=== PATIENT | female | born 1945 | race Caucasian/White ===

== ENCOUNTER 2022-10-17 13:10 | Outpatient (CLI) | payer MEDICARE, SELFPAY ==
--- NOTE | 2022-10-17 13:32 | ECG_ITS ---
Measurements Intervals [place] Rate: 77 P: 31 NE: 176 QRS: -21 QRSD: 83 T: 28 QT: 333 QTc: 378 Interpretive Statements REDUCED ECG QUALITY BECAUSE OF BASELINE ARTIFACT SINUS RHYTHM LOW QRS VOLTAGE IN PRECORDIAL LEADS [QRS DEFLECTION < 1.0 mV IN CHEST LEADS] SUSPECT PREVIOUS INFERIOR/LATERAL INFARCTION NONSPECIFIC T-WAVE ABNORMALITY ABNORMAL ECG NO PREVIOUS ECG AVAILABLE FOR COMPARISON Electronically Signed On 10-17-2022 15:42:01 CDT by Garrett Molina M.D.
[2022-10-17 13:55] LABS: Basophils Percent Auto 0.3 % (0.2-1.2); Eosinophils Absolute Auto 0.2 K/mm3 (0-0.3); Eosinophils Percent Auto 2.9 % (0-4.4); Hematocrit 46.5 % (37.0-47.0); Hemoglobin 15.4 g/dL (12.0-15.0); Immature Granulocyte Absolute 0.02 K/mm3 (0.00-0.031); Immature Granulocyte Percent A 0.3 % (0-0.5); Lymphocytes Absolute Auto 1.63 K/mm3 (0.9-3.2); Lymphocytes Percent Auto 22.5 % (18.3-44.2); Mean Corpuscular HGB Conc 33.1 g/dl (32-36); Mean Corpuscular Hemoglobin 32.5 pg (26-34); Mean Corpuscular Volume 98.1 fl (80-100); Mean Platelet Volume 11.4 fl (7.4-10.4); Monocytes Absolute Auto 0.4 K/mm3 (0.1-0.6); Monocytes Percent Auto 5.4 % (2.6-8.5); Neutrophils Percent Auto 68.6 % (45.5-73.1); Platelet Count Result 176 k/mm3 (150-375); Red Blood Count 4.74 M/mm3 (4.2-5.4); Red Cell Distribution Width 13.8 % (11.5-14.5); White Blood Count 7.2 K/mm3 (4.5-10.0)
[2022-10-17 14:02] LABS: Anion Gap 6 mmol/L (8-16); Blood Urea Nitrogen 15 mg/dL (7-17); Calcium 9.2 mg/dL (8.4-10.2); Carbon Dioxide 27 mmol/L (22-30); Chloride 107 mmol/L (98-107); Estimated Glomerular Filt Rate > 60; Glucose 143 mg/dL (65-110); Sodium 140 mmol/L (137-145)
== END 2022-10-17 13:11 | disposition home or self-care (01) ==
PROVIDERS: Anesthesiology; PCP Family Medicine; Visit Provider Obstetrics & Gynecology
DX: N85.2 Hypertrophy of uterus (principal); I10 Essential (primary) hypertension; E11.9 Type 2 diabetes mellitus without complications; Z01.818 Encounter for other preprocedural examination; R94.31 Abnormal electrocardiogram [ECG] [EKG]
CPT/HCPCS: 36415; 80048; 85025; 86850; 86900; 86901; 93005

== ENCOUNTER 2022-10-25 18:35 | Observation (INO) | payer MEDICARE, SELFPAY ==
[2022-10-16 13:03] VITALS: BMI 39.8
--- NOTE | 2022-10-16 13:42 | PC.NURSE ---
Report to the Outpatient Waiting Room, entrance under the green pavilion located off [facility], at time __7:30AM on date ___10/24/22____. Planned Procedure Time: __9:30AM . Time changes happen often and if your time is changed the preop area will call you the afternoon before. - You and your visitor will be asked to self-screen and do not enter if you have any COVID symptoms. - A mask is optional within the hospital at this time. Patients may have clear liquids (water, carbonated beverages, clear teas, apple juice) until 3 hours prior to surgery with a maximum of 20 ounces. - No food from midnight until time of surgery Take the following medications with a SIP of water the morning of surgery: ___SERTRALINE DO NOT STOP ANY OF YOUR OTHER PRESCRIPTION MEDICATIONS PRIOR TO SURGERY ?EXCEPT THE FOLLOWING Medications to discontinue per physician ___HOLD ALL VITAMINS/SUPPLEMENTS 3 DAYS PRE-OP Date to take last dose___10/20/22 Please no make-up, nail chinese, hairspray, perfume, deodorant, or body powder the day of surgery. No jewelry (including any body piercings) or valuables the day of surgery, leave them at home. Please take a shower or bath the night before, or the morning of, surgery with an antibacterial soap. Wear comfortable, loose fitting clothing. Children are encouraged to wear pajamas. - Jewelry must be removed prior to entering the operating room. Rings and piercings that are not removed may be cut off. - The hospital will not accept responsibility for valuables. - Please leave all valuables, including medications, at home the day of surgery. If you are going home after surgery, a licensed special education bus driver must drive you home. - NO public transportation without another adult if you receive anesthesia. - We recommend that an adult stay with you for 24 hours following discharge. - We also recommend that you do not drive, make important decision, drink alcoholic beverages, or take any drugs that were not prescribed by your health care provider for at least 24 hours after your discharge time. Follow any additional instructions given to you from your surgeon. If you or anyone in your household have experienced Covid symptoms in the past week, please notify your surgeon or the nurse liaison at the phone number below for possible testing. Telephone instructions given to ___PATIENT and asked if any additional questions and then verbalized understanding. Patient advised to call surgeon office or pre surgery nurse liaison [phone] if any additional questions.
--- NOTE | 2022-10-21 07:43 | PM.IMHP ---
H&P: HPI History of Present Illness Date/Time: 10/21/22 07:43 Chief Complaint: Pelvic pain and enlarged uterus Narrative: 77-year-old female admitted for hysterectomy and bilateral salpingo-oophorectomy secondary to enlarged uterus. She has pain and discomfort. Risks and benefits reviewed including but exclusive of , aspiration pneumonia, bleeding, transfusion, perforation injury to bowel, bladder, ureters, or other internal organs with need for open laparotomy. She received the ACOG handout entitled hysterectomy as well as the de [place] handout. She had all questions answered and asked to proceed [facility] Social History Social History Smoking packs per day: 0.5 Smoking cigarettes per day: 10.0 Years smoked: 12 Smoking pack-years: 6.00 Smoking status: Former smoker Tobacco type: cigarettes Smoking end date: 12/27/94 Substance use: never Living arrangements: alone Spiritual care concerns: No Meds Home Medications and Allergies Home Medications Medication Instructions Recorded Confirmed Type cholecalciferol (vitamin D3) 50 50 mcg PO DAILY 10/16/22 10/16/22 History mcg (2,000 unit) tablet lovastatin 20 mg tablet 20 mg PO HS 10/16/22 10/16/22 History magnesium 500 mg tablet 15 mg PO DAILY 10/16/22 10/16/22 History metformin 500 mg tablet,extended 500 mg PO QAM 10/16/22 10/16/22 History release 24 hr omeprazole 20 mg capsule,delayed 20 mg PO BID 10/16/22 10/16/22 History release sertraline 100 mg tablet 150 mg PO QAM 10/16/22 10/16/22 History spironolactone 50 mg tablet 50 mg PO QAM 10/16/22 10/16/22 History Allergies Allergy/AdvReac Type Severity Reaction Status Date / Time Sulfa (Sulfonamide Allergy Hives Verified 10/16/22 12:58 Antibiotics) Exam Const: General: cooperative, healthy appearing, comfortable and overweight Orientation/consciousness: oriented to person, oriented to place and oriented to time Resp: Effort & Inspection: normal respiratory effort Cardio: Rate: regular rate Rhythm: regular rhythm Heart sounds: S1 normal heart sound present and S2 normal heart sound present GI: Inspection: normal to inspection : External Female Exam: normal external appearance Speculum Exam - Vagina: normal appearance of the vagina Speculum Exam - Cervix: normal appearance of the cervix Bimanual exam- vagina & uterus: enlarged and Uterine tenderness Bimanual Exam- Adnexa, other: normal adnexae Assessment and Plan Assessment and plan (1) Enlarged uterus: Code(s): N85.2 - Hypertrophy of uterus Status: Acute (2) Pelvic pain: Code(s): R10.2 - Pelvic and perineal pain Status: Acute Plan Robotic total vaginal hysterectomy and bilateral salpingo-oophorectomy
[2022-10-24] VITALS (13 sets, daily range): BP systolic 93–130; BP diastolic 39–63; PULSE 58–90; RESP 16–22; TEMP 36.1–36.8; O2SAT 92–98; BMI 39.6
--- NOTE | 2022-10-24 05:57 | WPDHPUPDATE1 ---
History and Physical Update Update Date/Time: 10/24/22 05:57 History and Physical has been reviewed, including an updated exam of the patient. There are NO changes in the patient's condition. Risks, benefits, and alternatives have been discussed and questions answered. Patient agrees to proceed with procedure.
[2022-10-24 08:11] LABS: Glucose Point of Care 132 mg/dl (65-105)
[2022-10-24] MEDS: ACETAMINOPHEN 500 MG TABLET 1000 MG PO (08:20)
[2022-10-24] MEDS: KETOROLAC 15 MG/ML VIAL (*BKC) IV PUSH ×2 (08:20→13:40)
--- NOTE | 2022-10-24 09:03 | WPDANESEPPF ---
Anes - Initial Pre Proc Eval Procedure: Operation Date: 10/24/22 09:30 Proposed Procedures p Robotic Assisted Total Vaginal Hysterectomy with Bilateral Salpingo-oophorectomy - Kwame Rivera MD Date/Time: 10/24/22 09:03 Surgeon: Kwame Rivera MD Pre Op Diagnosis: enlarged uterus, fibroid, pain Patient Data Age: 77 Gender: F Height: 1.6 m Weight: 101.4 kg Allergies Allergy/AdvReac Type Severity Reaction Status Date / Time Sulfa (Sulfonamide Allergy Hives Verified 10/24/22 08:12 Antibiotics) Home Medications Medication Instructions Recorded Confirmed Type cholecalciferol (vitamin D3) 50 50 mcg PO DAILY 10/16/22 10/24/22 History mcg (2,000 unit) tablet lovastatin 20 mg tablet 20 mg PO HS 10/16/22 10/16/22 History magnesium 500 mg tablet 15 mg PO DAILY 10/16/22 10/24/22 History metformin 500 mg tablet,extended 500 mg PO QAM 10/16/22 10/16/22 History release 24 hr omeprazole 20 mg capsule,delayed 20 mg PO BID 10/16/22 10/16/22 History release sertraline 100 mg tablet 150 mg PO QAM 10/16/22 10/24/22 History spironolactone 50 mg tablet 50 mg PO QAM 10/16/22 10/16/22 History hydrocodone 5 mg-acetaminophen 325 1 tablet PO Q4H PRN pain #30 tabs 10/24/22 Rx mg tablet Laboratory Tests 10/24/22 08:09 POC Capillary Glucose 132 H mg/dl (65-105) Patient hx anesthesia problems: none Family hx anesthesia problems: none Results Review: All pre-operative results and documents have been reviewed as part of the pre-operative evaluation. [facility] Social History Social History Smoking packs per day: 0.5 Smoking cigarettes per day: 10.0 Years smoked: 12 Smoking pack-years: 6.00 Smoking status: Former smoker Tobacco type: cigarettes Smoking end date: 12/27/94 Substance use: never Living arrangements: alone Spiritual care concerns: No Anes - Eval Final PreProcedure Day of Procedure 10/24/22 09:03 Patient weight: obese Heart: regular rate and rhythm Lungs: decreased breath sounds Airway: Mallampati scale class III Neurological: alert and oriented Last oral intake: >/= 8 hours ASA classification: III Emergent: no Anesthetic plan: proceed Anesthesia type and monitoring: general and standard monitoring Results Review: All pre-operative results and documents have been reviewed as part of the pre-operative evaluation. Informed Consent: The patient's anesthetic plan and its attendant risks and benefits were discussed with the patient/family/POA. Questions were solicited and answers provided to the satisfaction of the patient/family/POA.
[2022-10-24] MEDS: ceFAZolin 2 GM/D5W 50 ML 2 GM/50 ML BAG IVPB (09:25)
[2022-10-24] MEDS: LACTATED RINGERS 1,000 ML 30 ML IV CONT ×2 (09:25→11:23)
--- NOTE | 2022-10-24 11:01 | W.PM.PROC2 ---
Procedure Note - Detailed Date of Procedure 10/24/22 Pre-op Diagnosis enlarged uterus, fibroid, pain Post-op Diagnosis Same Procedure Performed Buttock total vaginal hysterectomy and bilateral salpingo-oophorectomy Surgeon Kwame Rivera MD Anesthesia General Indications 77-year-old female with an markedly enlarged uterus and pelvic pain Findings uterus it was very large in size consistent with multiple fibroids. Normal-appearing ovaries and tubes bilaterally Description of Procedure patient was prepped draped in the normal sterile fashion placed in the dorsal lithotomy position. Trach anesthesia weighted speculum placed in posterior fornix vagina. Anterior lip of the cervix grasped with single-tooth tenaculum. Uterus sounded to 12cm. Serial dilatation with fragmented dilators performed followed by passes the 10. LEW and the 3. Cold cup. Next the 16 [place] Citizen catheter was placed in the bladder and. The weighted speculum and single-tooth removed. Gloves were changed. A supraumbilical incision made in the [place] needle passed in the abdomen. Abdomen filled with CO2 gas [id number]. The 8mm trocar advanced in the abdomen. Downside visualized no injury seen. Patient placed in Trendelenburg and a right left lateral quadrant incisions made. The 8mm trocars advanced under direct visualization assuring no injury. Right upper quadrant incision made 8mm trocar advanced under direct visualization assuring no injury. The robot was docked. Attention was turned to the console. The uterus was noted to be markedly irregular large and filling the entire pelvis. The left round ligament was grasped, burned, cut. Anterior bladder flap was formed by sharply dissecting the peritoneum and reflecting this caudally away from the cervix uterus the opposite round ligament which was clamped, burned, cut. Next the left infundibulopelvic structure was skeletonized clamping burning cutting the infundibulopelvic structure and bringing this to the level of previously cut round ligament. Removing the right ovary and tube the infundibulopelvic structure was clamped, burned, cut. This was brought to the level of previous cut round ligament. The left cardinal broad ligaments were then serially skeletonized clamping burning cutting and bringing this to the level of the uterine vessels. These were large and tortuous. Each was individually clamped, burned, cut. The opposite side on the right was clamped, burned, cut writing the i cardinal broad ligaments until the uterine vessels could be seen on the right these were individually clamped, burned, cut the uterus was blanched nicely in a colpotomy incision was made. The uterus could not be taken out in 1 piece as noted so it was no cone by sharply dissecting areas and stacking this and till all was be able to be brought out through vaginal opening in 1 piece. The vagina was then closed with continuous running 0V lock from lateral edge to lateral edge back to the midline. Irrigation undertaken and pelvis and [place] term was placed on the raw surface areas. The robot was undocked. The gas removed from the abdomen the trocars removed incisions closed with 4-0 Monocryl and glue patient was awakened went to recovery in satisfactory condition. All sponge, needle, instrument counts were correct. Blood loss was estimated at50cc there were no immediate complications noted Estimated Blood Loss 50 Drains No Packing No Pathology Yes Complications No immediate complications Condition Stable Disposition PACU
[2022-10-24 11:32] LABS: Glucose Point of Care 137 mg/dl (65-105)
[2022-10-24] MEDS: DEXTROSE 5%/0.45% SOD CHL 1,000 ML 125 ML IV CONT (13:29)
[2022-10-24] MEDS: HYDROcodone/acetaminophen (*CRX) 10-325 MG TABLET 1 TAB PO (14:26)
[2022-10-24] MEDS: SODIUM CHLORIDE 0.9% IV 500 ML IV CONT (14:40)
[2022-10-24] MEDS: HYDROcodone/acetaminophen (*CRX) 5-325 MG TABLET 1 TAB PO ×2 (17:26→23:10)
[2022-10-24] MEDS: IBUPROFEN 600 MG TABLET PO (23:10)
[2022-10-25] VITALS (7 sets, daily range): BP systolic 82–112; BP diastolic 45–92; PULSE 85–89; RESP 14–20; TEMP 35.7–36.7; O2SAT 86–91
[2022-10-25] MEDS: HYDROcodone/acetaminophen (*CRX) 5-325 MG TABLET 1 TAB PO (03:30)
[2022-10-25 05:14] LABS: Basophils Percent Auto 0.1 % (0.2-1.2); Eosinophils Percent Auto 0.1 % (0-4.4); Hematocrit 42.7 % (37.0-47.0); Hemoglobin 13.8 g/dL (12.0-15.0); Immature Granulocyte Absolute 0.07 K/mm3 (0.00-0.031); Immature Granulocyte Percent A 0.4 % (0-0.5); Lymphocytes Absolute Auto 1.59 K/mm3 (0.9-3.2); Lymphocytes Percent Auto 9.6 % (18.3-44.2); Mean Corpuscular HGB Conc 32.3 g/dl (32-36); Mean Corpuscular Hemoglobin 32.4 pg (26-34); Mean Corpuscular Volume 100.2 fl (80-100); Mean Platelet Volume 12.1 fl (7.4-10.4); Monocytes Absolute Auto 0.9 K/mm3 (0.1-0.6); Monocytes Percent Auto 5.3 % (2.6-8.5); Neutrophils Absolute Auto 13.9 K/mm3 (1.3-6.7); Neutrophils Percent Auto 84.5 % (45.5-73.1); Platelet Count Result 191 k/mm3 (150-375); Red Blood Count 4.26 M/mm3 (4.2-5.4); Red Cell Distribution Width 14.3 % (11.5-14.5); White Blood Count 16.5 K/mm3 (4.5-10.0)
--- NOTE | 2022-10-25 06:33 | PM.DS ---
DS: Admitting Diagnosis Discharge Date 10/25/2022 Admitting Diagnosis enlarged uterus/ fibroid/pain DS: Discharge Diagnosis Discharge Diagnosis (1) Pelvic pain: Code(s): R10.2 - Pelvic and perineal pain Status: Acute (2) Enlarged uterus: Code(s): N85.2 - Hypertrophy of uterus Status: Acute DS: Summary Hospital Course Reason for hospitalization: patient was admitted for robotic total vaginal hysterectomy bilateral salpingo-oophorectomy secondary to markedly enlarged uterus Hospital Course: patient underwent robotic total vaginal hysterectomy bilateral salpingo-oophorectomy on 10/24/2022. Uterus was noted to be large consistent with fibroids. The procedure was unremarkable. Please see the operative report for full details. Her hospital course was unremarkable. She remained afebrile. She was up, voiding without difficulty, ambulating, eating regular diet, generally without complaints. Time Spent with Patient Time attestation: Total time spent providing and/or coordinating discharge services: Exam Const: General: cooperative, healthy appearing, comfortable and well groomed Nutritional Appearance: overweight Orientation/consciousness: oriented to person, oriented to place and oriented to time HENMT: Head: normal to inspection Resp: Effort & Inspection: normal respiratory effort Cardio: Rate: regular rate Rhythm: regular rhythm Heart sounds: S1 normal heart sound present and S2 normal heart sound present GI: Inspection: normal to inspection and incision ( Wounds are clean dry and intact) DS: Data Data Completed and Pending Pending studies at discharge: Pending at discharge 10/24/22 10:40 Surgical [PTH] Routine Labs on day of discharge: Labs from last 24 hours 10/25/22 10/24/22 10/24/22 03:29 11:30 08:09 WBC 16.5 H RBC 4.26 Hgb 13.8 Hct 42.7 MCV 100.2 H MCH 32.4 MCHC 32.3 RDW 14.3 Plt Count 191 MPV 12.1 H Immature Gran % (Auto) 0.4 Neut % (Auto) 84.5 H Lymph % (Auto) 9.6 L [place] % (Auto) 5.3 Eos % (Auto) 0.1 Baso % (Auto) 0.1 L Lymph # (Auto) 1.59 [place] # (Auto) 0.9 H Eos # (Auto) 0.0 Baso # (Auto) 0.0 Abs Immat Gran (auto) 0.07 H Absolute Neuts (auto) 13.9 H Absolute Nucleated RBC 0.0 Nucleated RBC % 0.0 POC Capillary Glucose 137 H 132 H Discharge Plan Discharge Patient Disposition: Home, Self-Care Stand Alone Forms: General Discharge Instructions Follow-up/Referrals: Kwame Zuniga MD [Physician] - Discharge Medications: New hydrocodone-acetaminophen 5-325 mg tablet 1 tablet PO Q4H PRN (Reason: pain) Qty: 30 0RF No Action sertraline 100 mg tablet 150 mg PO QAM omeprazole 20 mg Capsule,Delayed Release(Dr/Ec) 20 mg PO BID lovastatin 20 mg tablet 20 mg PO HS metformin 500 mg tablet extended release 24 hr 500 mg PO QAM spironolactone 50 mg tablet 50 mg PO QAM magnesium 500 mg Tablet 15 mg PO DAILY cholecalciferol (vitamin D3) 50 mcg (2,000 unit) Tablet 50 mcg PO DAILY
--- NOTE | 2022-10-25 06:39 | PM.GYNPNOP ---
MICROBIOLOGY TEACHER - A/P Postoperative Procedures: Procedures Operation Date: 10/24/22 09:30 Actual Procedure Side Surgeon p Robotic Assisted Total Vaginal Hysterectomy with Bilateral Salpingo-oophorectomy Bilateral Kwame Rivera MD Postoperative day: 1 Postoperative status: doing well Postoperative plan: routine post-op care, see orders, ambulate, advance diet and discharge Time Spent With Patient Time: Total time spent is greater than 50% in coordination of care (as documented) at patient's floor/unit and/or counseling patient: Time with patient: less than 15 minutes MICROBIOLOGY TEACHER- PN:Subj Post-Op Subjective Date/time seen: 10/25/22 06:39 Subjective: patient reports feeling better, patient has no complaints, pain is well controlled and patient is tolerating oral intake Exam Const: General: cooperative, healthy appearing, comfortable and overweight Orientation/consciousness: oriented to person, oriented to place and oriented to time HENMT: Head: normal to inspection Resp: Effort & Inspection: normal respiratory effort Cardio: Rate: regular rate Rhythm: regular rhythm Heart sounds: S1 normal heart sound present and S2 normal heart sound present GI: Inspection: normal to inspection and incision ( wounds are clean dry and intact) MICROBIOLOGY TEACHER - PN: Obj Data Vital Signs Vital Signs: Vital Signs - 24 hr 10/24/22 07:40 10/24/22 11:23 10/24/22 11:35 Temperature 97.0 F L 97.5 F L Pulse Rate 90 70 65 Respiratory Rate 16 22 H 22 H Blood Pressure 114/61 93/46 L 97/39 L Pulse Oximetry 96 98 97 Oxygen Delivery Room Air Simple Face Mask Simple Face Mask Oxygen Flow Rate 15 6 10/24/22 11:50 10/24/22 12:05 10/24/22 12:20 Temperature Pulse Rate 62 62 65 Respiratory Rate 22 H 20 20 Blood Pressure 104/44 L 106/50 L 106/56 L Pulse Oximetry 96 92 94 Oxygen Delivery Nasal Cannula Nasal Cannula Nasal Cannula Oxygen Flow Rate 3 3 3 10/24/22 12:49 10/24/22 12:35 10/24/22 13:00 Temperature Pulse Rate 64 65 64 Respiratory Rate 20 20 20 Blood Pressure 112/58 L 107/58 L Pulse Oximetry 95 96 95 Oxygen Delivery Nasal Cannula Nasal Cannula Nasal Cannula Oxygen Flow Rate 3 3 3 10/24/22 13:15 10/24/22 17:40 10/24/22 17:40 Temperature 97.0 F L 97.7 F Pulse Rate 58 L 73 73 Respiratory Rate 20 18 18 Blood Pressure 98/45 L 125/63 Pulse Oximetry 95 96 96 Oxygen Delivery Nasal Cannula Oxygen Flow Rate 3 10/24/22 20:50 10/24/22 20:50 10/24/22 23:15 Temperature 97.7 F 98.2 F Pulse Rate 85 78 Respiratory Rate 18 16 Blood Pressure 130/49 L 121/55 L Pulse Oximetry 92 92 95 Oxygen Delivery Nasal Cannula Oxygen Flow Rate 3 10/24/22 23:15 10/25/22 03:15 10/25/22 03:15 Temperature 97.4 F L Pulse Rate 85 Respiratory Rate 20 Blood Pressure 112/49 L Pulse Oximetry 95 Oxygen Delivery Nasal Cannula Room Air Oxygen Flow Rate 2.5 Intake/Output Intake/Output: Intake & Output 10/22/22 10/23/22 10/24/22 10/25/22 23:59 23:59 23:59 23:59 Intake Total 2890 Output Total 1045 100 Balance 1845 -100 Meds/Results Medications: Active Medications Generic Name Dose Route Start Last Admin Trade Name Freq PRN Reason Stop Dose Admin Hydrocodone Bitart/Acetaminophen 1 tab 10/24/22 12:54 10/24/22 14:26 Hydrocodone/Acetaminophen (*Crx) 10-325 Mg Tablet PO 1 tab Q3H PRN Administration Pain Rated 6 or Greater Hydrocodone Bitart/Acetaminophen 1 tab 10/24/22 12:54 10/25/22 03:30 Hydrocodone/Acetaminophen (*Crx) 5-325 Mg Tablet PO 1 tab Q3H PRN Administration Pain Rated 5 or Less Docusate Sodium 100 mg 10/24/22 17:00 10/24/22 22:59 Docusate Sodium 100 Mg Capsule PO Not Given BID LILO Enoxaparin Sodium 40 mg 10/25/22 09:00 Enoxaparin 40 Mg/0.4 Ml Syringe SUB-Q DAILY [facility] Dextrose/Sodium Chloride 1,000 mls @ 125 mls/hr 10/24/22 12:54 10/24/22 23:34 Dextrose 5% Sodium Chloride 0.45% IV CONT Not Given .Q8H LILO Ibuprofen 600 mg 09/28
[2022-10-25] MEDS: DOCUSATE SODIUM 100 MG CAPSULE PO ×2 (09:52→16:38)
[2022-10-25] MEDS: ENOXAPARIN 40 MG/0.4 ML SYRINGE SUB-Q (09:52)
--- NOTE | 2022-10-25 11:12 | WPDANESPN ---
Anes - Prog Note Post-Op Date/Time: 10/25/22 11:12 Cardiovascular status: normal Respiratory status: normal Airway patency: baseline Mental status: baseline Post-Op hydration status: normal Vital Signs: Last Vital Signs Temp 36.7 C 10/25/22 07:11 Pulse 89 10/25/22 07:11 Resp 14 10/25/22 07:11 BP 82/45 L 10/25/22 07:11 Pulse Ox 91 10/25/22 07:11 O2 Del Method Room Air 10/25/22 03:15 O2 Flow Rate 2.5 10/24/22 23:15 Pain Score (VAS): 3 I/O: Intake & Output 10/24/22 10/25/22 10/25/22 23:59 07:59 15:59 Intake Total 2240 Output Total 1000 100 Balance 1240 -100 Laboratory Tests 10/25/22 03:29 10/24/22 10/25/22 11:30 03:29 WBC 16.5 H RBC 4.26 Hgb 13.8 Hct 42.7 MCV 100.2 H MCH 32.4 MCHC 32.3 RDW 14.3 Plt Count 191 MPV 12.1 H Immature Gran % (Auto) 0.4 Neut % (Auto) 84.5 H Lymph % (Auto) 9.6 L [place] % (Auto) 5.3 Eos % (Auto) 0.1 Baso % (Auto) 0.1 L Lymph # (Auto) 1.59 [place] # (Auto) 0.9 H Eos # (Auto) 0.0 Baso # (Auto) 0.0 Abs Immat Gran (auto) 0.07 H Absolute Neuts (auto) 13.9 H Absolute Nucleated RBC 0.0 Nucleated RBC % 0.0 POC Capillary Glucose 137 H Post-procedural complaints: none Patient Feedback: Patient satisfied with anesthetic care.
[2022-10-25] MEDS: SODIUM CHLORIDE 0.9% IV 500 ML 300 ML IV CONT (15:28)
[2022-10-25] MEDS: IBUPROFEN 600 MG TABLET PO (16:38)
[2022-10-25] MEDS: FUROSEMIDE INJ 40 MG/4 ML VIAL 10 MG IV PUSH (17:56)
--- NOTE | 2022-10-26 07:20 | PM.GYNPNOP ---
LOCOMOTIVE ELECTRICIAN - A/P Postoperative Procedures: Procedures Operation Date: 10/24/22 09:30 Actual Procedure Side Surgeon p Robotic Assisted Total Vaginal Hysterectomy with Bilateral Salpingo-oophorectomy Bilateral Kwame Rivera MD Postoperative day: 2 Postoperative status: doing well Postoperative plan: routine post-op care, see orders and discharge Time Spent With Patient Time: Total time spent is greater than 50% in coordination of care (as documented) at patient's floor/unit and/or counseling patient: home with leg bag she is not taking much fluids orally Time with patient: less than 15 minutes LOCOMOTIVE ELECTRICIAN- PN:Subj Post-Op Subjective Date/time seen: 10/26/22 07:20 Subjective: patient has no complaints, pain is well controlled, patient is tolerating oral intake and other (Not drinking enough) Exam Const: General: cooperative, healthy appearing, comfortable and overweight Orientation/consciousness: oriented to person, oriented to place and oriented to time HENMT: Head: normal to inspection Resp: Effort & Inspection: normal respiratory effort Cardio: Rate: regular rate Rhythm: regular rhythm Heart sounds: S1 normal heart sound present and S2 normal heart sound present GI: Inspection: normal to inspection and incision ( wounds are clean dry and intact) LOCOMOTIVE ELECTRICIAN - PN: Obj Data Vital Signs Vital Signs: Vital Signs - 24 hr 10/25/22 09:50 10/25/22 13:15 10/25/22 13:00 Temperature Pulse Rate Respiratory Rate Blood Pressure 112/92 H 100/65 Oxygen Delivery Room Air 10/25/22 19:30 10/25/22 19:30 10/25/22 22:00 Temperature 96.2 F L Pulse Rate 87 Respiratory Rate 18 Blood Pressure 107/55 L Oxygen Delivery Room Air Room Air 10/26/22 05:00 Temperature Pulse Rate Respiratory Rate Blood Pressure Oxygen Delivery Room Air Intake/Output Intake/Output: Intake & Output 10/23/22 10/24/22 10/25/22 10/26/22 23:59 23:59 23:59 23:59 Intake Total 2890 1140 600 Output Total 1045 500 275 Balance 1845 640 325 Meds/Results Medications: Active Medications Generic Name Dose Route Start Last Admin Trade Name Freq PRN Reason Stop Dose Admin Hydrocodone Bitart/Acetaminophen 1 tab 10/24/22 12:54 10/24/22 14:26 Hydrocodone/Acetaminophen (*Crx) 10-325 Mg Tablet PO 1 tab Q3H PRN Administration Pain Rated 6 or Greater Hydrocodone Bitart/Acetaminophen 1 tab 10/24/22 12:54 10/25/22 03:30 Hydrocodone/Acetaminophen (*Crx) 5-325 Mg Tablet PO 1 tab Q3H PRN Administration Pain Rated 5 or Less Docusate Sodium 100 mg 10/24/22 17:00 10/25/22 16:38 Docusate Sodium 100 Mg Capsule PO 100 mg BID LILO Administration Enoxaparin Sodium 40 mg 10/25/22 09:00 10/25/22 09:52 Enoxaparin 40 Mg/0.4 Ml Syringe SUB-Q 40 mg DAILY LILO Administration Ibuprofen 600 mg 10/24/22 12:54 10/25/22 16:38 Ibuprofen 600 Mg Tablet PO 600 mg Q6H PRN Administration Cramping Ketorolac Tromethamine 15 mg 10/24/22 13:34 10/24/22 13:40 Ketorolac 15 Mg/Ml Vial (*Bkc) IV PUSH 15 mg Q6H PRN Administration Pain Rated 4-6 Naloxone HCl 0.1 mg 10/24/22 12:54 Naloxone Hcl 0.4 Mg/Ml Vial IV PUSH Q2M PRN Respiratory rate less than 10 Ondansetron HCl 4 mg 10/24/22 12:54 Ondansetron Inj 4 Mg/2 Ml Vial IV PUSH Q6H PRN Nausea And Vomiting Simethicone 80 mg 10/24/22 12:54 Simethicone 80 Mg Tab.Chew PO Q2H PRN Gas Labs 10/25/22 03:29
[2022-10-26 08:00] VITALS: BP 115/60; PULSE 79; RESP 16; TEMP 36.4; O2SAT 91
[2022-10-26] MEDS: DOCUSATE SODIUM 100 MG CAPSULE PO (08:00)
[2022-10-26] MEDS: ENOXAPARIN 40 MG/0.4 ML SYRINGE SUB-Q (08:00)
== END 2022-10-26 11:21 | disposition home or self-care (01) ==
LOC: ANHSURGERY 18:57 → ANHOB2 18:57
PROVIDERS: Admitting Provider Obstetrics & Gynecology; PCP Family Medicine; Visit Provider Obstetrics & Gynecology
PROC: (CPT 58554; principal; 2022-10-24 09:30)
DX: N85.2 Hypertrophy of uterus (principal); R10.2 Pelvic and perineal pain; E66.9 Obesity, unspecified; Z68.39 Body mass index [BMI] 39.0-39.9, adult; Z87.891 Personal history of nicotine dependence; Z79.84 Long term (current) use of oral hypoglycemic drugs; Z79.891 Long term (current) use of opiate analgesic; Z79.899 Other long term (current) drug therapy
CPT/HCPCS: 58554; S2900; 36415; 82948; 85025; 88307; 99199; A9270; G0378; J0330; J0690; J1100; J1650; J1885; J1940; J2405; J2704; J2710; J3010; J7030; J7040; J7120

== ENCOUNTER 2022-10-29 15:59 | Emergency (ER) | payer MEDICARE, SELFPAY ==
--- NOTE | ~2022-10-29 | CT_ITS ---
EXAMINATION: CTA chest PE protocol DATE: 10/29/2022 18:26 INDICATION: SOB SINCE THURSDAY; S/P HYSTERECTOMY; ELEVATED D DIMER 3.57 TECHNIQUE: Computed tomography angiography (CTA) of the chest was performed with 100 mL Omnipaque-350 intravenous contrast timed to evaluate the pulmonary arteries. Coronal maximum intensity projection 3D-reconstructions were created by the technologist. The dose-length product (DLP) was 808.42 mGy-cm. Automated exposure control and iterative reconstruction technique were employed. COMPARISON: None. FINDINGS: Lung parenchyma and airways: Central reticular and groundglass opacity in the upper lobes, with evide nce of early fibrosis. Dependent atelectasis. Pleura: Moderate right and small left pleural fluid collections. Thoracic inlet, axillae and chest wall: Intrathoracic goiter. Thoracic aorta: Normal. Mediastinum: Normal. Heart and pericardium: Mild cardiomegaly. Coronary artery calcifications: Mild. Upper abdomen: No significant finding. Bones: No acute osseous finding. Pulmonary arteries: Study quality: Adequate. No pulmonary emboli detected. IMPRESSION: No CT evidence of acute pulmonary embolus. Pulmonary opacities may represent hypersensitivity pneumon itis, airways disease, or atypical infection. Reviewed, dictated and finalized at location K. IMPRESSION: No CT evidence of acute pulmonary embolus. Pulmonary opacities may represent hy persensitivity pneumonitis, airways disease, or atypical infection.
--- NOTE | ~2022-10-29 | XR_ITS ---
EXAMINATION: XR chest 1V portable Exam Date/Time: 10/29/2022 17:00 CDT HISTORY: SOB SINCE THURSDAY; S/P HYSTERECTOMY. Comparison: None available. RESULT: Lines, tubes, and devices: Partially visualized right shoulder arthroplasty. Lungs and pleura: Diffuse reticular opacities. Bibasilar atelectasis. Cardiomediastinal silhouette: Possible enlarged right hilar lymph node. Other: No acute osseous or upper abdominal finding. IMPRESSION: Interstitial edema. Possible right hilar lymphadenopathy. Reviewed, dictated and finalized at location K.
--- NOTE | 2022-10-29 16:05 | ED.SOB ---
HPI - SOB/Dyspnea General Chief Complaint: Shortness of Breath/Dyspnea Stated Complaint: SOB Time Seen by Provider: 10/29/22 16:05 Source: patient Mode of arrival: ambulatory Limitations: no limitations History of Present Illness HPI Narrative: 77-year-old female with a history of hypertension, diabetes mellitus, negative stress test, status post right shoulder and right knee replacement, ELSIE,fibroid uterus/uterine enlargement status post robotic vaginal hysterectomy with salpingo-oophorectomy on 10/24/2022 presents to the ER with -- urinary incontinence. The patient is not able to hold her urine. She does not have control over urination -- shortness of breath at rest and with activity. Shortness of breath is present at rest and with activity. No cough or sputum production. the patient had been on Lovenox prophylactic -- no vaginal bleeding or discharge. -- No fever or chills. MD elicited complaint: shortness of breath Pertinent past history: other ( ELSIE) Onset (ago): day(s) ( symptoms started 5 days ago) Timing: constant Severity: mild Exacerbating factors: nothing Relieving factors: nothing Known history of: other ( ELSIE) Associated symptoms: cough Treatment prior to arrival: none Related Data Home Medications Medication Instructions Recorded Confirmed cholecalciferol (vitamin D3) 50 50 mcg PO DAILY 10/16/22 10/29/22 mcg (2,000 unit) tablet lovastatin 20 mg tablet 20 mg PO HS 10/16/22 10/29/22 magnesium 500 mg tablet 15 mg PO DAILY 10/16/22 10/29/22 metformin 500 mg tablet,extended 500 mg PO QAM 10/16/22 10/29/22 release 24 hr omeprazole 20 mg capsule,delayed 20 mg PO BID 10/16/22 10/29/22 release sertraline 100 mg tablet 150 mg PO QAM 10/16/22 10/29/22 spironolactone 50 mg tablet 50 mg PO QAM 10/16/22 10/29/22 Allergies Allergy/AdvReac Type Severity Reaction Status Date / Time Sulfa (Sulfonamide Allergy Hives Verified 10/24/22 08:12 Antibiotics) Review of Systems Review of Systems: All systems reviewed & are unremarkable except as noted in HPI and below Constitutional: Constitutional: Reports as per HPI and Reports no additional constitutional complaints Eyes: Eyes: Reports as per HPI and Reports no additional eye complaints ENT: Reports system reviewed and no additional complaints, except as documented and Reports as per HPI Cardiovascular: Cardiovascular: Reports as per HPI and Reports no additional cardiovascular complaints Respiratory: Respiratory: Reports as per HPI, Reports no additional respiratory complaints, Reports cough and Reports dyspnea Gastrointestinal: Gastrointestinal: Reports as per HPI and Reports no additional gastrointestinal complaints Genitourinary: Genitourinary: Reports no additional female genitourinary complaints and Reports urinary incontinence Musculoskeletal: Musculoskeletal: Reports no additional musculoskeletal complaints and Reports as per HPI Integumentary/Breasts: Skin/Breast: Reports system reviewed and no additional complaints, except as docu and Reports as per HPI Neurologic: Reports system reviewed and no additional complaints, except as documented and Reports as per HPI Psychiatric: Psychiatric: Reports no additional psychiatric complaints and Reports as per HPI Endocrine: Endocrine: Reports no additional endocrine complaints and Reports as per HPI Hematologic/Lymphatic: Hematologic/Lymphatic: Reports no additional hematologic/lymphatic complaints and Reports as per HPI Allergic/Immunologic: Allergic/Immunologic: Reports no additional allergic/immunologic complaints and Reports as per HPI [facility] Social History Social History Smoking packs per day: 0.5 Smoking cigarettes per day: 10.0 Years smoked: 12 Smoking pack-years: 6.00 Smoking status: Former smoker Substance use: never Living arrangements: alone Spiritual care concerns: No Exam Const: General: healthy mino
[2022-10-29 16:11] VITALS: BP 146/71; PULSE 80; RESP 20; TEMP 36.9; O2SAT 97
--- NOTE | 2022-10-29 16:31 | ECG_ITS ---
Measurements Intervals Albert Rate: 75 P: 58 RI: 172 QRS: -59 QRSD: 87 T: 33 QT: 379 QTc: 424 Interpretive Statements SINUS RHYTHM LOW QRS VOLTAGE IN PRECORDIAL LEADS POOR R WAVE PROGRESSION, CONSIDER ANTERIOR INFARCT CONSIDER INFERIOR INFARCT, AGE INDETERMINATE BORDERLINE T WAVE ABNORMALITY- ANTERIOR LEADS BASELINE ARTIFACT- II, III, AVL, AVF, V1, V6 ABNORMAL ECG COMPARED TO ECG 10/17/2022 13:44:57 NO SIGNIFICANT CHANGES Electronically Signed On 10-29-2022 19:59:03 CDT by Kali Hill D.O.
[2022-10-29 17:06] LABS: Basophils Absolute Auto 0.05 K/mm3 (0.00-0.10); Basophils Percent Auto 0.4 % (0.0-1.0); Eosinophils Absolute Auto 0.28 K/mm3 (0.02-0.50); Eosinophils Percent Auto 2.3 % (1.0-6.0); Hematocrit 41.3 % (35.0-42.0); Hemoglobin 13.7 g/dL (11.7-13.8); Immature Granulocyte Absolute 0.05 K/mm3 (0.00-0.00); Immature Granulocyte Percent A 0.4 % (0.0-0.0); Lymphocytes Absolute Auto 1.25 K/mm3 (1.10-4.50); Lymphocytes Percent Auto 10.4 % (18.0-42.0); Mean Corpuscular HGB Conc 33.2 g/dL (32.0-36.0); Mean Corpuscular Hemoglobin 32.5 pg (27.0-31.0); Mean Corpuscular Volume 97.9 fL (78.0-102.0); Mean Platelet Volume 11.8 fl (9.2-11.8); Monocytes Absolute Auto 0.84 K/mm3 (0.10-0.90); Neutrophils Absolute Auto 9.6 K/mm3 (1.7-7.2); Neutrophils Percent Auto 79.5 % (50.0-70.0); Platelet Count Result 185 K/mm3 (150-420); Red Blood Count 4.22 M/mm3 (4.20-5.40); Red Cell Distribution Width 14.1 % (11.6-14.4); White Blood Count 12.1 K/mm3 (4.8-10.8)
[2022-10-29 17:21] LABS: INR 1.1; Partial Thromboplastin Time 24.5 SEC (23.90-30.70)
[2022-10-29 17:26] LABS: D Dimer 3.57 mg/L (0.19-0.50)
[2022-10-29 17:31] LABS: Lactic Acid Reflex 1.1 mmol/L (0.4-2.0)
[2022-10-29 17:32] LABS: Alanine Aminotransferase 83 U/L (14-59); Albumin Level 2.4 g/dL (3.4-5.0); Alkaline Phosphatase 123 U/L (46-116); Anion Gap 7 mmol/L (8-16); Aspartate Amino Transferase 34 U/L (15-37); Bilirubin,Total 1.1 mg/dL (0.00-1.00); Blood Urea Nitrogen 11 mg/dL (7-18); Calcium 8.9 mg/dL (8.5-10.1); Carbon Dioxide 31 mmol/L (21-32); Chloride 104 mmol/L (98-108); Estimated CRCL calculation 55 ml/min; Estimated Glomerular Filt Rate > 60; Glucose 83 mg/dL (70-99); Lipase 22 U/L (16-77); NT Pro B Type Natriuretic Pept 4675 pg/mL (0-450); Osmolality Calculated 292 mOsm/kg (285-295); Potassium 3.6 mmol/L (3.5-5.1); Sodium 142 mmol/L (136-145); Total Protein 7.1 g/dL (6.4-8.2)
[2022-10-29 17:35] LABS: Troponin I 73.7 ng/L (0.00-60.4)
[2022-10-29] MEDS: LACTATED RINGERS 500 ML 999 ML IV CONT (17:55)
[2022-10-29 17:57] LABS: Appearance Urine Clear (Clear); Bilirubin Urine Negative (Negative); Blood Urine 2+ (Negative); Color Urine Light Yellow (Yellow); Glucose Urine UA Negative (Negative); Ketones Urine Negative (Negative); Leukocyte Esterase Ur 3+ LEU/UL (Negative); Nitrate Urine Positive (Negative); Protein Urine Trace (Negative); Specific Grav Ur 1.015 (1.010-1.020); pH Urine 7.5 (5.0-8.0)
[2022-10-29 18:04] LABS: Add Urine Microscopic? YES; Bacteria Urine 3+ /hpf; Squamous Epithelial Cell Urine Rare /hpf (Few)
--- NOTE | 2022-10-29 18:53 | PC.NURSE ---
pt resting per cot. no distress noted. no needs at this time.
[2022-10-29 18:55] VITALS: BP 148/72; PULSE 78; RESP 20; O2SAT 94
[2022-10-29 18:57] VITALS: BP 130/61; PULSE 70; RESP 18; O2SAT 94
[2022-10-29 20:21] LABS: Troponin I 71.8 ng/L (0.00-60.4)
[2022-10-29 20:43] VITALS: BP 134/52; PULSE 72; RESP 20; TEMP 36.7; O2SAT 100
[2022-10-29] MEDS: FUROSEMIDE INJ 20 MG/2 ML VIAL IV PUSH (22:12)
[2022-10-29 22:40] LABS: Influenza A QL RT-PCR Negative (Negative); Influenza B QL RT-PCR Negative (Negative); RSV RNA, RT-PCR Negative (Negative); SARS-CoV-2 RNA PCR Negative (Negative)
[2022-10-29 23:14] VITALS: BP 121/81; PULSE 88; RESP 20; TEMP 36.7; O2SAT 100
--- NOTE | 2022-10-31 12:54 | PC.NURSE ---
Final Culture report: Patient transfered to [facility] RN spoke with floor patient is still in room CCU bed 4. Report faxed to [phone]
--- NOTE | 2022-11-01 15:21 | PC.NURSE ---
final urine culture report reviewed. >100,000 e.coli. this pt was transferred to [facility] in [place]. this report faxed to [facility] through connect staff. they are sending it on to the appropriate charge nurse.
== END 2022-10-29 23:15 | disposition short-term general hospital (02) ==
PROVIDERS: Emergency Provider Internal Medicine Critical Care Medicine; PCP Family Medicine
DX: I21.4 Non-ST elevation (NSTEMI) myocardial infarction (principal); I11.0 Hypertensive heart disease with heart failure; I50.9 Heart failure, unspecified; E11.9 Type 2 diabetes mellitus without complications; Z79.84 Long term (current) use of oral hypoglycemic drugs; Z87.891 Personal history of nicotine dependence; Z20.822 Contact with and (suspected) exposure to COVID-19
CPT/HCPCS: 36415; 71045; 71275; 80053; 81001; 83605; 83690; 83880; 84484; 85025; 85380; 85610; 85730; 87077; 87086; 87088; 87186; 87637; 93005; 96361; 96374; 99285; J1940; J7120; Q9967

== ENCOUNTER 2023-02-02 12:17 | Outpatient (RCR) | payer MEDICARE, SELFPAY ==
--- NOTE | 2023-02-02 16:43 | STOPEVDC ---
Assessment and note entered by Corin Mchugh, LEAD CONSULTANT Thank you for referring Mena Olsen to [facility].? An evaluation has been completed. No further treatment is needed. Evaluation Information Assessment Status Evaluation Reported Pain Level Pain Score 0: Self Report Assessment ST Clinical Summary VOICE EVALUATION This patient was seen for a Voice Evaluation after suffering dysphonia/ deflated vocal cord , according to patient, after undergoing anesthesia/ intubation for hysterectomy on 10/24/22. Patient stated prior to this procedure, she considered her voice to be normal but now would describe it as somewhat harsh and lower in pitch than previously. She reports she has better times of day and worse when she has been speaking for lengthy periods of time; of note, patient spoke throughout this evaluation and attempted to use conversational topics to keep conversation going throughout the session. Results today found pitch and loudness ranges to be grossly within normal limits for age and sex although vocal quality was notably disturbed. Patient was instructed in the use of a vocal hygiene regimen to reduce the stress/tension on the vocal cords. Patient declined any attempt at additional Speech Therapy at this time, stating she plans on waiting to see if an injection of material into the impaired vocal cord can return it to normal functioning prior to initiating any direct Speech Therapy at this time. Additionally, patient has plans to be out of town for an extended visit prior to the procedure. Therapist requested patient contact this department after her procedure to assess improvement in voicing and to determine if she would then benefit from direct Speech Therapy although therapist expects physician will order more Speech Therapy at that time if he feels it could be helpful for strengthening the vocal cord(s). Thank you for this referral. Plan of Care ST Services Indicated No
== END 2023-04-20 09:30 | disposition home or self-care (01) ==
LOC: ANHST 12:17
PROVIDERS: PCP Family Medicine; Visit Provider Otolaryngology
DX: J38.01 Paralysis of vocal cords and larynx, unilateral (principal); R49.0 Dysphonia
CPT/HCPCS: 92524

== ENCOUNTER 2023-03-24 02:38 | Day surgery (SDC) | payer MEDICARE, SELFPAY ==
[2023-03-19 15:00] VITALS: BMI 37.5
--- NOTE | 2023-03-19 15:23 | PC.NURSE ---
Report to the Outpatient Waiting Room, entrance under the green pavilion located off [facility], at time __9:30AM on date __03/24/23 . Planned Procedure Time: __11:30AM . Time changes happen often and if your time is changed the preop area will call you the afternoon before. - You and your visitor will be asked to self-screen and do not enter if you have any COVID symptoms. - A mask is optional within the hospital at this time. Patients may have clear liquids (water, carbonated beverages, clear teas, apple juice) until 3 hours prior to surgery with a maximum of 20 ounces. - No food from midnight until time of surgery. Take the following medications with a SIP of water the morning of surgery: ___SERTRALINE DO NOT STOP ANY OF YOUR OTHER PRESCRIPTION MEDICATIONS PRIOR TO SURGERY ?EXCEPT THE FOLLOWING Medications to discontinue per physician ___HOLD ALL VITAMINS/SUPPLEMENTS 3 DAYS PRE-OP PER ANESTHESIA Date to take last dose____03/20/23 Please no make-up, nail romansh, hairspray, perfume, deodorant, or body powder the day of surgery. No jewelry (including any body piercings) or valuables the day of surgery, leave them at home. Please take a shower or bath the night before, or the morning of, surgery with an antibacterial soap. Wear comfortable, loose fitting clothing. - Jewelry must be removed prior to entering the operating room. Rings and piercings that are not removed may be cut off. - The hospital will not accept responsibility for valuables. - Please leave all valuables, including medications, at home the day of surgery. If you are going home after surgery, a licensed bottom hoop driver must drive you home. - NO public transportation without another adult if you receive anesthesia. - We recommend that an adult stay with you for 24 hours following discharge. - We also recommend that you do not drive, make important decision, drink alcoholic beverages, or take any drugs that were not prescribed by your health care provider for at least 24 hours after your discharge time. Follow any additional instructions given to you from your surgeon. If you or anyone in your household have experienced Covid symptoms in the past week, please notify your surgeon or the nurse liaison at the phone number below for possible testing. Telephone instructions given to __PATIENT and asked if any additional questions and then verbalized understanding. Patient advised to call surgeon office or pre surgery nurse liaison [phone] if any additional questions.
--- NOTE | 2023-03-23 12:43 | PM.IMHP ---
H&P: HPI History of Present Illness Date/Time: 03/23/23 12:43 Chief Complaint: Hoarse voice paralyzed left vocal cord Narrative: planned procedure Review of Systems Review of Systems: All systems reviewed & are unremarkable except as noted in HPI and below [facility] Past Medical History Medical History Allergies Anxiety GERD (gastroesophageal reflux disease) Type 2 diabetes mellitus without complications Family History Family History Father Diabetes mellitus Cerebrovascular accident Mother Hypertension Heart disease Depression Anxiety Social History Social History Social History: Caffeine-daily Smoking packs per day: 0.25 Smoking cigarettes per day: 5.0 Years smoked: 6 Smoking pack-years: 1.50 Smoking status: Former smoker Tobacco type: cigarettes Smoking end date: 12/27/94 Alcohol intake: never Substance use: never Lack of Transportation: No Lack of Food: Never True Current Housing: I Have Housing Concerned About Future Housing: No Difficulty Paying Gas/Electric Bills: Decline to Answer Difficulty Paying for Meds: No Currently Unemployed: No Education: High School Diploma/GED Difficulty w/ Childcare or Family Care: No Living arrangements: alone Spiritual care concerns: No Meds Home Medications and Allergies Home Medications Medication Instructions Recorded Confirmed Type cholecalciferol (vitamin D3) 50 50 mcg PO DAILY 10/16/22 03/19/23 History mcg (2,000 unit) tablet lovastatin 20 mg tablet 20 mg PO HS 10/16/22 03/19/23 History magnesium 500 mg tablet 15 mg PO DAILY 10/16/22 03/19/23 History metformin 500 mg tablet,extended 500 mg PO QAM 10/16/22 03/19/23 History release 24 hr omeprazole 20 mg capsule,delayed 20 mg PO BID 10/16/22 03/19/23 History release sertraline 100 mg tablet 150 mg PO QAM 10/16/22 03/19/23 History spironolactone 50 mg tablet 50 mg PO QAM 10/16/22 03/19/23 History fluticasone propionate 50 2 spray intranasal BID #16 mL 01/07/23 03/19/23 Rx mcg/actuation nasal spray,suspension (Flonase Allergy Relief) azelastine 137 mcg (0.1 %) nasal 1 spray intranasal Q12H #30 mL 01/30/23 03/19/23 Rx spray aerosol cephalexin 500 mg capsule 500 mg PO TID 03/19/23 03/19/23 History Allergies Allergy/AdvReac Type Severity Reaction Status Date / Time Sulfa (Sulfonamide Allergy Hives Verified 03/19/23 13:35 Antibiotics) Exam Narrative: paralyzed left cord hoarse voice Assessment and Plan Assessment and plan (1) Paralysis of left vocal cord: Code(s): 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 Risks were discussed including damage to gingiva damage to dentition damage to jaw failure to inject cord need for tracheostomy if cord over injected. Damage to any structure above the clavicles by myself damage to any structure during the induction and maintenance of anesthesia. Patient voiced understanding of these risks and agreed. (2) Soft hoarse voice: Code(s): R49.0 - Dysphonia Status: Acute
[2023-03-24] VITALS (8 sets, daily range): BP systolic 125–175; BP diastolic 56–97; PULSE 61–79; RESP 14–22; TEMP 36.3; O2SAT 95–100
--- NOTE | 2023-03-24 07:17 | WPDHPUPDATE1 ---
History and Physical Update Update Date/Time: 03/24/23 07:17 History and Physical has been reviewed, including an updated exam of the patient. There are NO changes in the patient's condition. Risks, benefits, and alternatives have been discussed and questions answered. Patient agrees to proceed with procedure.
[2023-03-24 11:49] LABS: Glucose Point of Care 112 mg/dl (65-105)
--- NOTE | 2023-03-24 11:53 | SUR.PREOP ---
OR [address] BOYD, WAS TOLD TO HAVE 4% LIDOCAINE AND AFRIN IN ROOM FOR HIM TO USE BEFORE PROCEDURE IN PREOP ROOM 11.
--- NOTE | 2023-03-24 12:03 | WPDANESEPPF ---
Anes - Initial Pre Proc Eval Procedure: Operation Date: 03/24/23 13:00 Proposed Procedures p Direct Laryngoscopy with Vocal Cord Injection - Pawan Covarrubias MD Date/Time: 03/24/23 12:03 Surgeon: Pawan Covarrubias MD Pre Op Diagnosis: Paralyzed Lt Vocal Cord Patient Data Age: 77 Gender: F Height: 1.57 m Weight: 93.8 kg Last Vital Signs Temp 36.3 C L 03/24/23 11:49 Pulse 79 03/24/23 11:49 Resp 14 03/24/23 11:49 BP 134/73 03/24/23 11:49 Pulse Ox 99 03/24/23 11:49 O2 Del Method Room Air 03/24/23 11:49 Allergies Allergy/AdvReac Type Severity Reaction Status Date / Time Sulfa (Sulfonamide Allergy Hives Verified 03/19/23 13:35 Antibiotics) Home Medications Medication Instructions Recorded Confirmed Type cholecalciferol (vitamin D3) 50 50 mcg PO DAILY 10/16/22 03/19/23 History mcg (2,000 unit) tablet lovastatin 20 mg tablet 20 mg PO HS 10/16/22 03/19/23 History magnesium 500 mg tablet 15 mg PO DAILY 10/16/22 03/19/23 History metformin 500 mg tablet,extended 500 mg PO QAM 10/16/22 03/19/23 History release 24 hr omeprazole 20 mg capsule,delayed 20 mg PO BID 10/16/22 03/19/23 History release sertraline 100 mg tablet 150 mg PO QAM 10/16/22 03/19/23 History spironolactone 50 mg tablet 50 mg PO QAM 10/16/22 03/19/23 History fluticasone propionate 50 2 spray intranasal BID #16 mL 01/07/23 03/19/23 Rx mcg/actuation nasal spray,suspension (Flonase Allergy Relief) azelastine 137 mcg (0.1 %) nasal 1 spray intranasal Q12H #30 mL 01/30/23 03/19/23 Rx spray aerosol cephalexin 500 mg capsule 500 mg PO TID 03/19/23 03/19/23 History Laboratory Tests 03/24/23 11:46 POC Capillary Glucose 112 H mg/dl (65-105) Patient hx anesthesia problems: none Family hx anesthesia problems: none Results Review: All pre-operative results and documents have been reviewed as part of the pre-operative evaluation. [facility] Past Medical History Medical History Allergies Anxiety GERD (gastroesophageal reflux disease) Type 2 diabetes mellitus without complications Surgical History Surgical History (Updated 03/24/23 @ 12:04 by Kwame Castrejon MD) H/O: hysterectomy Family History Family History Father Diabetes mellitus Cerebrovascular accident Mother Hypertension Heart disease Depression Anxiety Social History Social History Social History: Caffeine-daily Smoking packs per day: 0.25 Smoking cigarettes per day: 5.0 Years smoked: 6 Smoking pack-years: 1.50 Smoking status: Former smoker Tobacco type: cigarettes Smoking end date: 12/27/94 Alcohol intake: never Substance use: never Lack of Transportation: No Lack of Food: Never True Current Housing: I Have Housing Concerned About Future Housing: No Difficulty Paying Gas/Electric Bills: Decline to Answer Difficulty Paying for Meds: No Currently Unemployed: No Education: High School Diploma/GED Difficulty w/ Childcare or Family Care: No Living arrangements: alone Spiritual care concerns: No Anes - Eval Final PreProcedure Day of Procedure 03/24/23 12:03 Patient weight: obese and morbidly obese Heart: regular rate and rhythm Lungs: clear to auscultation Airway: Mallampati scale class III Neurological: alert and oriented Last oral intake: >/= 8 hours ASA classification: III Emergent: no Anesthetic plan: proceed Anesthesia type and monitoring: general ETT and standard monitoring Results Review: All pre-operative results and documents have been reviewed as part of the pre-operative evaluation. Informed Consent: The patient's anesthetic plan and its attendant risks and benefits were discussed with the patient/family/POA. Questions were solicited and answers provided to the satisfaction of the patient/fam
[2023-03-24] MEDS: OXYMETAZOLINE HCL 0.05% NAS 15 ML BTL (*BKC) 1 SPRAY NASAL (13:00)
[2023-03-24] MEDS: LACTATED RINGERS 1,000 ML 30 ML IV CONT (13:13)
[2023-03-24 13:31] LABS: Glucose Point of Care 99 mg/dl (65-105)
--- NOTE | 2023-03-24 13:47 | W.PM.PROC2 ---
Procedure Note - Detailed Date of Procedure 03/24/23 Pre-op Diagnosis Paralyzed Lt Vocal Cord, hoarse voice Post-op Diagnosis Same Procedure Performed Direct laryngoscopy injection of prolactin + into the left vocal fold lateral to the retinoid process Surgeon Pawan Covarrubias MD Anesthesia General Indications See above Findings Poor medialization with injection of 1 cc Description of Procedure Patient identified consent verified preop. Patient brought to the OR. Time-out performed. General anesthesia induced endotracheal tube secured. Patient prepped draped positioned 2nd time-out performed. Dedo laryngoscope utilized after maxillary tooth mouth guard was placed to perform laryngoscopy. Good visualization of the posterior 80% of the cords. Patient placed in suspension. Endoscope utilized. Prolactin +open needle bent. The arytenoid musculature was palpated and injection commence lateral to it. Poor medialization I tried 2 different spots. 1 cc was injected. That being said there was medialization. After 1 cc was injected began to extrude from the 2nd puncture site. Any remnant calcium hydroxyapatite was suctioned up. Dedo laryngoscope was taken out of suspension removed from the airway maxillary tooth mouth guard removed. Patient tolerated the procedure well. Care the patient given anesthesiology. Patient was taken to PACU. Estimated Blood Loss 0 Drains No Packing No Pathology None sent Complications No immediate complications Condition Stable Disposition PACU [facility] Billing Surgery - Charge Forward: Surgery Billing
[2023-03-24] MEDS: ACETAMINOPHEN 500 MG TABLET 1000 MG PO (14:13)
== END 2023-03-24 14:59 | disposition home or self-care (01) ==
PROVIDERS: PCP Family Medicine; Visit Provider Otolaryngology
PROC: 0CJS8ZZ Inspection of Larynx, Via Natural or Artificial Opening Endoscopic (ICD-10-PCS; CPT 31570; principal; 2023-03-24 13:00)
DX: J38.01 Paralysis of vocal cords and larynx, unilateral (principal); R49.0 Dysphonia; F41.9 Anxiety disorder, unspecified; K21.9 Gastro-esophageal reflux disease without esophagitis; E11.9 Type 2 diabetes mellitus without complications; Z87.891 Personal history of nicotine dependence; Z79.84 Long term (current) use of oral hypoglycemic drugs; E66.9 Obesity, unspecified; Z68.37 Body mass index [BMI] 37.0-37.9, adult
CPT/HCPCS: 31570; 82948; A9270; C1878; J0330; J1100; J2405; J2704; J7120